=== PATIENT | female | born 1990 | race African-American/Black ===

== ENCOUNTER 2017-11-23 23:05 | Emergency (ER) | payer MEDICAID ==
[~2017-11-23] VITALS: Ht 165.1 cm; Wt 80.0 kg
[~2017-11-23 23:05] MED LIST: OCD MT; PREN-88 PO
[2017-11-24] MEDS ORDERED: KETOROLAC 30MG/ML VIAL IM ONE (01:00)
[2017-11-24 01:45] VITALS: BP 128/76
== END 2017-11-24 02:20 | disposition home or self-care (01) ==
LOC: ER 23:05
DX: S20.229A Contusion of unspecified back wall of thorax, initial encounter (principal); V89.2XXA Person injured in unspecified motor-vehicle accident, traffic, initial encounter; Y93.89 Activity, other specified; Y92.89 Other specified places as the place of occurrence of the external cause; Y99.8 Other external cause status; Z98.890 Other specified postprocedural states
CPT/HCPCS: 81025; 96372; 99283; J1885